=== PATIENT | female | born 1975 | race Hispanic/Latino ===

== ENCOUNTER 2022-06-11 09:10 | Outpatient (CLI) | payer SELFPAY | END 2022-06-11 09:11 | disposition home or self-care (01) | LOC: CSHLAB 09:10 | PROVIDERS: ATTEND Student in an Organized Health Care Education/Training Program | DX: Z01.818 Encounter for other preprocedural examination (principal); Z20.822 Contact with and (suspected) exposure to COVID-19; N92.0 Excessive and frequent menstruation with regular cycle | CPT/HCPCS: 80048; 84703; 85027; 86850; 86900; 86901; 87811; 93005; 93010 ==

== ENCOUNTER 2022-06-16 05:47 | Day surgery (SDC) | payer OTHER ==
[2022-06-11 10:04] LABS: Hemoglobin 11.7 g/dL (12.0-15.5); Mean Corpuscular HGB CONC 32.5 g/dL (32.0-36.0); Mean Corpuscular Volume 83.1 fl (81.6-98.3); Mean Platelet Volume 11.6 fl (7.4-10.4); Platelet Count 327 10x3/uL (150-450); RBC Distribution Width 16.1 % (11.5-14.5); Red Blood Cell (RBC) Count 4.33 10x6/uL (3.90-5.03); White Blood Cell (WBC) Count 7.5 10x3/uL (3.5-10.5)
[2022-06-11 10:20] LABS: BHCG - Serum Negative (NEGATIVE); Pregs Control Background? CLEAR/WHITE (CLR/WHITE); Pregs Control Bar Appear? YES (CONTROL BAR)
[2022-06-11 10:27] LABS: Anion Gap 11 mmol/L (10-20); BUN (Urea Nitrogen) 18 mg/dL (7.0-18.7); Calc. Creatinine Clearance 0 mL/min (70-130); Calcium 9.6 mg/dL (7.8-10.44); Carbon Dioxide 27 mmol/L (22-29); Chloride 107 mmol/L (98-107); Estimated GFR 110; Glucose 120 mg/dL (70-105); Sodium 141 mmol/L (136-145)
[2022-06-14 13:05] VITALS: BMI 34.7
[2022-06-16] MEDS ORDERED: EPINEPHrine 1 MG/ML AMP ONE (06:41)
[2022-06-16] MEDS ORDERED: Bupivacaine PF 0.5% 30 ML VIAL ONE (06:42)
[2022-06-16] MEDS ORDERED: Methylene Blue 50 MG/10 ML AMPUL ONE (06:42)
[2022-06-16] MEDS ORDERED: CeleCOXIB 100 MG CAP ONE (06:43)
[2022-06-16] MEDS ORDERED: Gabapentin 300 MG CAP ONE (06:43)
[2022-06-16] MEDS ORDERED: Glycopyrrolate 0.2 MG/ML 5 ML SYRINGE ONE (06:49)
[2022-06-16] MEDS ORDERED: PROPOFOL 20 ML ONE (06:49)
[2022-06-16] MEDS ORDERED: Rocuronium Bromide 10 MG/ML (10ML VIAL) ONE (06:49)
[2022-06-16] MEDS ORDERED: Dexamethasone 20 MG/5 ML VIAL ONE (06:49)
[2022-06-16] MEDS ORDERED: Midazolam HCl 2 mg/2 ml Vial ONE (06:49)
[2022-06-16] MEDS ORDERED: Fentanyl 250 MCG/5 ML VIAL ONE (06:49)
[2022-06-16] MEDS ORDERED: Lidocaine 1% PF 5 ML VIAL ONE (06:49)
[2022-06-16] MEDS ORDERED: Ondansetron PF 4 MG/2 ML Vial ONE (06:49)
[2022-06-16] MEDS ORDERED: Lidocaine 4% PF 5 ML AMP ONE (06:50)
[2022-06-16] MEDS ORDERED: Lidocaine 1% MPF 2 ML VIAL ONE (07:23)
[2022-06-16] MEDS ORDERED: Famotidine/PF 20 mg/2ml Vial ONE (07:24)
[2022-06-16] MEDS ORDERED: CEFAZOLIN 2 GM VIAL ONE (07:37)
[2022-06-16] MEDS ORDERED: Ropivacaine 0.2% 550 ML 550 ML NERVE BLCK SCH (09:15)
[2022-06-16] MEDS ORDERED: Fentanyl 100 MCG/2 ML VIAL ONE (09:35)
[2022-06-16] MEDS ORDERED: HYDROcodone/Acetaminophen 10/325 mg Tablet ONE (11:07)
[2022-06-16] MEDS ORDERED: HYDROcodone/Acetaminophen 5/325 mg Tablet ONE (11:08)
== END 2022-06-16 12:30 | disposition home or self-care (01) ==
LOC: CSHSDC 05:47
PROVIDERS: ATTEND Obstetrics & Gynecology
PROC: 8E0W4CZ Robotic Assisted Procedure of Trunk Region, Percutaneous Endoscopic Approach (ICD-10-PCS; principal; 2022-06-16)
PROC: 0UT74ZZ Resection of Bilateral Fallopian Tubes, Percutaneous Endoscopic Approach (ICD-10-PCS; principal; 2022-06-16)
PROC: 0UT94ZZ Resection of Uterus, Percutaneous Endoscopic Approach (ICD-10-PCS; principal; 2022-06-16)
DX: D25.9 Leiomyoma of uterus, unspecified (principal); N80.0 Endometriosis of uterus; N83.8 Other noninflammatory disorders of ovary, fallopian tube and broad ligament; N73.6 Female pelvic peritoneal adhesions (postinfective); I10 Essential (primary) hypertension; K21.9 Gastro-esophageal reflux disease without esophagitis; D64.9 Anemia, unspecified; Z79.1 Long term (current) use of non-steroidal anti-inflammatories (NSAID); Z79.899 Other long term (current) drug therapy; Z20.822 Contact with and (suspected) exposure to COVID-19
CPT/HCPCS: 80048; 84703; 85027; 86850; 86900; 86901; 87811; 88307; A4306; C1776; J0171; J0690; J1100; J2250; J2405; J2704; J2795; J3010; Q9968; S0020; S0028